=== PATIENT | female | born 2000 | race Caucasian/White ===

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

== ENCOUNTER → 2023-04-26 03:07 | Outpatient (CLI) | payer MEDICAID, SELFPAY ==
--- NOTE | 2023-04-26 08:47 | DI.RAD_ITS ---
Exam(s) XR LUMBAR SPINE COMPLETE EXAM: XR LUMBAR SPINE COMPLETE CLINICAL HISTORY: HIP AND BACK PAIN, M54.50. TECHNIQUE: 2D digital imaging was performed. COMPARISON: No exams were available for comparison FINDINGS: Five views. No evidence of fracture, listhesis, nor pars interarticularis defects. All the disc spaces exhibit n ormal height. Facet joints appear unremarkable. Bone density normal. No osseous lesions. IMPRESSION: No significant radiographic findings in the lumbosacral spinal column. DATA REPOSITORY: RADIATION DOSE DELIVERED:
--- NOTE | 2023-04-26 08:47 | DI.RAD_ITS ---
Exam(s) XR SACRUM COCCYX EXAM: XR SACRUM COCCYX CLINICAL HISTORY: HIP AND COCCYX PAIN,M53.3,M25.559. TECHNIQUE: 2D digital imaging was performed. COMPARISON: No exams were available for comparison FINDINGS: 3 views No evidence of fracture of the sacrum and coccyx. No osseous lesions in the sacrum and coccyx. Bone density normal. Visualized sacroiliac joints unremarkable. IMPRESSION: No significant osseous findings in the sacrum and coccyx. DATA REPOSITORY: RADIATION DOSE DELIVERED:
== END ==
PROVIDERS: PCP Nurse Practitioner; Visit Provider Nurse Practitioner Family
DX: M54.50 Low back pain, unspecified (principal); M53.3 Sacrococcygeal disorders, not elsewhere classified
CPT/HCPCS: 72110; 72220

== ENCOUNTER 2024-07-31 15:08 | Outpatient (REF) | payer MEDICAID, SELFPAY ==
--- NOTE | 2024-07-31 11:20 | PAPFT_PTH ---
PATIENT: Honey Gaytan LOC: NCN #:[id number] AGE/SX: 23/F ROOM: RE07/31/[address]: Barby Sullivan : 2000 BED: DIS: 07/31/2024 SPEC #: [id number] RECD: 07/31/24 18:14 STATUS: NANCY REJermaine #: [id number] ELEONORA: 07/31/24 11:[address]: Barby Sullivan DEPT: [facility] Cytology RECD BY: Naina Castillo Tissues: 1 - CX/ENDOCX FOR PAP SMEARS Procedures: PAP THIN PREP/[facility] Screening Comments: [id number]
== END 2024-07-31 15:09 | disposition home or self-care (01) ==
LOC: NCHCN 15:08
PROVIDERS: PCP Nurse Practitioner Family; Visit Provider Nurse Practitioner Family
DX: Z00.00 Encounter for general adult medical examination without abnormal findings (principal); Z12.4 Encounter for screening for malignant neoplasm of cervix; Z01.419 Encounter for gynecological examination (general) (routine) without abnormal findings
CPT/HCPCS: 88142; 87480; 87510; 87660

== ENCOUNTER 2024-08-27 11:26 | Outpatient (REF) | payer MEDICAID, SELFPAY ==
[2024-08-28 13:31] LABS: Chlamydia Result Negative (Negative); GC Result Negative (Negative)
== END 2024-08-27 11:27 | disposition home or self-care (01) ==
LOC: LBN 11:26
PROVIDERS: PCP Nurse Practitioner Family; Visit Provider Nurse Practitioner Women's Health
DX: Z11.3 Encounter for screening for infections with a predominantly sexual mode of transmission (principal); N94.10 Unspecified dyspareunia
CPT/HCPCS: 87491; 87591

== ENCOUNTER 2025-01-15 21:45 | Outpatient (REF) | payer MEDICAID, SELFPAY ==
[2025-01-15 22:03] LABS: Bilirubin Negative (Negative); Blood Trace-intact (Negative); Clarity Clear (Clear); Glucose Negative (Negative); Ketones Negative (Negative); Leukocyte Esterase Small (Negative); Nitrite Negative (Negative); Urobilinogen 0.2 mg/dL (Up to 0.2); pH 7.5 (5-8)
[2025-01-15 22:23] LABS: Bacteria Moderate HPF (Negative); C & S Indicated? No; Casts Negative LPF (Negative); Crystals Negative HPF (Negative); Epithelial Cells Few HPF (Negative); Mucus Negative (Negative); Other Cells Rare Renal (Negative); RBC 0-2 HPF (0-2)
== END 2025-01-15 21:46 | disposition home or self-care (01) ==
LOC: LBN 21:45
PROVIDERS: PCP Nurse Practitioner Family; Visit Provider Nurse Practitioner Family
DX: R30.0 Dysuria (principal); R39.9 Unspecified symptoms and signs involving the genitourinary system
CPT/HCPCS: 81003; 81015; 87480; 87510; 87660